=== PATIENT | female | born 1960 | race American Indian/Alaskan Native ===

== ENCOUNTER 2017-10-11 11:35 | Observation (INO) | payer OTHER ==
[2017-10-11 11:53] VITALS: BMI 30.2
--- NOTE | 2017-10-11 12:35 | ED PDOC ---
Arrival/HPI - General Chief Complaint: Chest Pain Time Seen by Provider: 10/11/17 12:32 Historian: Patient - History of Present Illness Narrative History of Present Illness (Text): 10/11/17 1245 pt p/w + 3 days onset of persistent left arm/shoulder region pain, severe at 8/ 10, following shoveling snow 3 days ago; pt states + left chest pain started today, at most pain is also 8/10; pt states chest pain is intermittent, lasting few seconds; pt states the chest pain prompted her to come to ED for check up; pt denied fever/chills/sweats, no sob/palpitations, no abd pain, no n/v, intermittent left arm/hand numbness/tingling, no urinary/bowel changes; pt denied Fall/trauma/sick contact, no travel; pt is here for further eval; pt's without other complaints. Time/Duration: < week (1 day of chest pain, 3 days of left arm pain) Symptom Onset: Sudden Symptom Course: Intermittent Quality: Tightness, Cramping Severity Level: 6, Moderate Activities at Onset: Rest Context: Home Past Medical History - Provider Review Nursing Documentation Reviewed: Yes - Travel History Have you recently traveled outside [place] w/in the past 3 mons?: No - Past History Past History: No Previous - Infectious Disease Hx of Infectious Diseases: None - Cardiac Hx Hypertension: Yes - Psychiatric Hx Substance Use: No - Surgical History Hx Appendectomy: Yes Hx Tonsillectomy: Yes - Anesthesia Hx Anesthesia: Yes Hx Anesthesia Reactions: No Hx Malignant Hyperthermia: No Family/Social History - Physician Review Nursing Documentation Reviewed: Yes Family/Social History: No Known Family HX Smoking Status: Light Smoker < 10 Cigarettes Daily Hx Alcohol Use: Yes Frequency of alcohol use: Socially Hx Substance Use: No Hx Substance Use Treatment: No Allergies/Home Meds Allergies/Adverse Reactions: Allergies No Known Allergies Allergy (Verified 10/11/17 11:55) Home Medications: Home Meds Medication Instructions Recorded Confirmed Lisinopril [Prinivil] 1 tab PO DAILY 10/11/17 10/11/17 Multivitamin [Daily Prince] 1 tab PO DAILY 10/11/17 10/11/17 Review of Systems - Review of Systems Constitutional: Normal Eyes: Normal ENT: Normal Respiratory: Normal Cardiovascular: Chest Pain Gastrointestinal: Normal Genitourinary Female: Normal Musculoskeletal: Other (left arm/shoulder pain) Skin: Normal Neurological: Normal. absent: Headache, Dizziness Endocrine: Normal Hemo/Lymphatic: Normal Psychiatric: Normal Physical Exam Vital Signs Reviewed: Yes Vital Signs Temp Pulse Resp BP Pulse Ox 10/11/17 11:35 97.6 F 65 19 135/82 98 Temperature: Afebrile Blood Pressure: Normal Pulse: Regular Respiratory Rate: Normal Appearance: Positive for: Well-Appearing, Non-Toxic, Uncomfortable, Other ( resting in bed, alert/awake, cooperative, GCS = 15, oriented x 3) Pain Distress: Mild Mental Status: Positive for: Alert and Oriented X 3 - Systems Exam Head: Present: Atraumatic, Normocephalic Pupils: Present: PERRL, Other (visual field intact b/l; no nystagmus, no photophobia; sclera anicteric) Extroacular Muscles: Present: EOMI Conjunctiva: Present: Normal Ears: Present: Normal Mouth: Present: Moist Mucous Membranes, Normal Teeth, Other (uvula/tongue are midline, no exudate/lesions, no drooling/stridor) Pharnyx: Present: Normal Nose (External): Present: Atraumatic Nose (Internal): Present: Normal Inspection Neck: Present: Normal Range of Motion, Trachea Midline, Other (no midline tenderness, no nuchal rigidity, no meningeal signs). No: MIDLINE TENDERNESS Respiratory/Chest: Present: Clear to Auscultation, Good Air Exchange, Other ( CTA b/l, no w/r/r, no accessory muscle use noted, no tachypenia) Cardiovascular: Present: Regular Rate and Rhythm, Normal S1, S2. No: Murmurs Abdomen: Present: Normal Bowel Sounds, Other (well nourished female, no focal tenderness, no barnes's sign, no mcburney's point tenderness, no masses/rebound/ guarding/rigidity) Back: Present: Normal Inspection. No: Midline Tenderness Upper Extremity: Present: Normal Inspection, Normal ROM, NORMAL PULSES, Neurovascularly Intact, Capillary Refill < 2s. No: Edema Lower Extremity: Present: Normal Inspection, NORMAL PULSES, Normal ROM, Neurovascularly Intact, Capillary Refill < 2 s. No: CALF TENDERNESS, Corbin's Sign Neurological: Present: GCS=15, CN II-XII Intact, Speech Normal Skin: Present: Warm, Normal Color, Other (cap refill < 1sec, no ulcerations, no petechiae) Psychiatric: Present: Alert, Oriented x 3 Medical Decision Making ED Course and Treatment: 10/11/17 12:45 Impression: chest pain, left arm pain i have consider all the differential diagnosis regarding pt's chief medical complaints/clinical findings, including but are not limited to: chest pain, r/o acs A/P: chest pain - labs - iv - xray - r/o acs 10/11/2017 13:23 Chest X-ray IMPRESSION: No active disease. Dictator: Romain Acevedo MD 10/11/17 14:54 pt states currently chest pain free, but left shoulder/arm pain continues pt is not sob pt is made aware of her medical results agrees with admission/observation I spoke to Dr Sam (financial sales professional PCP) at 1330, made aware, agrees with ED mgt/txt, agrees with admission/obs placement Re-evaluation Time: 13:26 Reassessment Condition: Improved - Lab Interpretations Lab Results: 10/11/17 12:22 10/11/17 12:22 Lab Results 10/11/17 13:15: Urine Color Yellow, Urine Appearance Clear, Urine pH 6.0, Ur Specific [place] 1.020, Urine Protein Negative, Urine Glucose (UA) Negative, Urine Ketones Negative, Urine Blood Negative, Urine Nitrate Negative, Urine Bilirubin Negative, Urine Urobilinogen 0.2, Ur Leukocyte Esterase Negative 10/11/17 12:22: Sodium 139, Potassium 4.4, Chloride 107, Carbon Dioxide 27, Anion Gap 10, BUN 18, Creatinine 0.9, Est GFR ( Amer) > 60, Est GFR (Non- Af Amer) > 60, Random Glucose 102, Calcium 9.8, Magnesium 2.1, Total Bilirubin 1.2, AST 27, ALT 20, Alkaline Phosphatase 82, Lactate Dehydrogenase 400, Total Creatine Kinase 51, Troponin I < 0.01, NT-Pro-B Natriuret Pep 31.9, Total Protein 7.2, Albumin 4.2, Globulin 3.0, Albumin/Globulin Ratio 1.4 10/11/17 12:22: WBC 5.7, RBC 4.03, Hgb 12.9, Hct 38.2, MCV 94.8, MCH 32.0, MCHC 33.8, RDW 12.5, Plt Count 204, MPV 10.3, Gran % 45.3 L, Lymph % (Auto) 45.5 H, [place] % (Auto) 6.0, Eos % (Auto) 2.5, Baso % (Auto) 0.7, Gran # 2.58, Lymph # ( Auto) 2.6, [place] # (Auto) 0.3, Eos # (Auto) 0.1, Baso # (Auto) 0.04 I have reviewed the lab results: Yes Interpretation: All labs normal - RAD Interpretation Narrative RAD Interpretations (Text): 10/11/17 14:55 HISTORY: chest pain COMPARISON: No prior. TECHNIQUE: Chest PA and lateral FINDINGS: LUNGS: No active pulmonary disease. PLEURA: No significant pleural effusion identified. No pneumothorax apparent. CARDIOVASCULAR: Normal. OSSEOUS STRUCTURES: No significant abnormalities. VISUALIZED UPPER ABDOMEN: Normal. OTHER FINDINGS: None. IMPRESSION: No active disease. Radiology Orders: 10/11/17 12:32 CHEST TWO VIEWS (PA/LAT) [RAD] Stat Material Handler 1St Shift: Radiologist - EKG Interpretation EKG Interpretation (Text): 10/11/17 14:56 NSR at 65 bpm, normal axis, no ectopy, qs in leads III, F, non-specific st-t changes to leads V4-5, ABNL EKG; no old ekg to compare with Interpreted by ED Physician: Yes Type: 12 lead EKG Comparison: No previous EKG avail. - Medication Orders Current Medication Orders: Discontinued Medications Aspirin (Aspirin) 325 mg PO STAT STA Stop: 10/11/17 12:33 Last Admin: 10/11/17 12:49 Dose: 325 mg Nitroglycerin (Nitrostat Sl Tab) 0.4 mg SL STAT STA Stop: 10/11/17 12:33 Last Admin: 10/11/17 12:48 Dose: 0.4 mg Disposition/Present on Arrival - Present on Arrival Any Indicators Present on Arrival: No History of DVT/PE: No History of Uncontrolled Diabetes: No Urinary Catheter: No History of Decub. Ulcer: No History Surgical Site Infection Following: None - Disposition Have Diagnosis and Disposition been Completed?: Yes Diagnosis: Chest pain with minimal risk of acute coronary syndrome Disposition: HOSPITALIZED Disposition Time: 13:30 Patient Plan: Admission, Observation Patient Problems: Current Active Problems Problem Status Onset Chest pain with minimal risk of acute coronary syndrome Acute Condition: STABLE
[2017-10-11 12:48] LABS: BASO # 0.04 K/mm3 (0.0-2.0); BASO % 0.7 % (0.0-3.0); EOS # 0.1 (0.0-0.7); EOS % 2.5 % (1.5-5.0); GRAN # 2.58 (1.4-6.5); GRAN % 45.3 % (50.0-68.0); HEMOGLOBIN 12.9 g/dL (12.0-16.0); LYMPH # 2.6 (1.2-3.4); LYMPH % 45.5 % (22.0-35.0); MEAN CELL VOLUME 94.8 fl (80.0-105.0); MEAN CORPUSCULAR HGB CONC 33.8 g/dl (31.0-37.0); MEAN PLATELET VOLUME 10.3 fl (7.0-11.0); MONO # 0.3 (0.1-0.6); RBC 4.03 10^6/uL (3.5-6.1); RED CELL DISTRIBUTION WIDTH 12.5 % (11.5-14.5); WHITE BLOOD COUNT 5.7 10^3/ul (4.5-11.0)
[2017-10-11 13:00] LABS: ALB/GLOB RATIO 1.4 (1.1-1.8); ALBUMIN 4.2 g/dL (3.0-4.8); ALT/SGPT 20 U/L (7-56); AST/SGOT 27 U/L (14-36); BLOOD UREA NITROGEN 18 mg/dL (7-21); CALCIUM 9.8 mg/dL (8.4-10.5); GFR AFRICAN-AMERICAN > 60; GFR NON-AFRICAN AMERICAN > 60
[2017-10-11 13:11] LABS: B-TYPE NATRIURETIC PEPTIDE 31.9 pg/mL (0-450); TROPONIN I < 0.01 ng/mL
--- NOTE | 2017-10-11 13:24 | RAD ---
HISTORY: chest pain COMPARISON: No prior. TECHNIQUE: Chest PA and lateral FINDINGS: LUNGS: No active pulmonary disease. PLEURA: No significant pleural effusion identified. No pneumothorax apparent. CARDIOVASCULAR: Normal. OSSEOUS STRUCTURES: No significant abnormalities. VISUALIZED UPPER ABDOMEN: Normal. OTHER FINDINGS: None. IMPRESSION: No active disease.
[2017-10-11 13:31] LABS: URINE BILIRUBIN NEGATIVE (NEGATIVE); URINE BLOOD NEGATIVE (NEGATIVE); URINE GLUCOSE (UA) NEGATIVE (NEGATIVE); URINE LEUKOCYTE ESTERASE NEGATIVE Leu/uL (NEGATIVE); URINE PROTEIN NEGATIVE mg/dL (<30 mg/dL); URINE UROBILINOGEN 0.2 E.U./dL (<1 E.U./dL)
[2017-10-11 13:32] LABS: URINE APPEARANCE CLEAR (CLEAR); URINE COLOR YELLOW (YELLOW)
[2017-10-11 15:43] VITALS: RESP 18
[2017-10-11] MEDS ORDERED: Non Formulary Medication (Multivitamin [Daily Vite] 1 TAB) PO SCH (17:00)
[2017-10-11 20:27] LABS: HDL CHOLESTEROL 72 mg/dL (29-60)
[2017-10-11 20:38] LABS: LDL CHOLESTEROL 70 mg/dL (0-129)
[2017-10-11] MEDS: Naproxen 550 mg Tab PO SCH (22:44)
--- NOTE | 2017-10-12 05:12 | HP ---
CHIEF COMPLAINT: Chest pain, left shoulder pain. HISTORY OF PRESENT ILLNESS: Ms. Linda Lino, 57-year-old lady, came in to [facility] Emergency Room with left chest pain. Actually three days ago, she was shoveling snow and she started to have pain in her neck, left shoulder, and going to left upper extremity, and today she started chest pain that was intermittent, lasting few seconds. The patient states that chest pain prompted her to come in the Emergency Room Department for checkup. Denies fevers, chills. No nausea, vomiting, or diarrhea. No fever, no headache. No history of fall or sick contact. No travel. The patient was seen with the family sitting on the bedside in her room. PAST MEDICAL HISTORY: Hypertension, appendectomy, tonsillectomy. FAMILY HISTORY: Father and mother noncontributory. HABITS: Light smoker, less than 10. Alcohol, yes. Substance abuse, no. ALLERGIES: THE PATIENT IS NOT ALLERGIC WITH ANY MEDICATION. HOME MEDICATIONS: Lisinopril, multivitamins. REVIEW OF SYSTEMS: Patient was seen and examined on the bedside in her room. Family was sitting around bedside, still having pain in the neck, left upper extremity, shoulder and left side of the chest below the breast. No headache, no dizziness, no fever, no chills, no nausea or vomiting, no dysuria, no hematuria. PHYSICAL EXAMINATION: VITAL SIGNS: Temperature 97.6, pulse 55, respiratory rate 19, blood pressure 135/82, pulse oximetry is 98. HEENT: Head: Normocephalic, atraumatic. Eyes: PERRLA. Extraocular muscles intact. Conjunctivae clear. Nose patent. NECK: Supple. No carotid bruit. No JVD or thyromegaly. CHEST: Bilaterally symmetrical. HEART: S1 and S2 positive. LUNGS: Clear to auscultation. ABDOMEN: Soft. Bowel sounds present. No organomegaly. EXTREMITIES: No edema. No cyanosis. NEUROLOGICAL: The patient is awake and alert. Moving all four extremities. No focal deficits. LABORATORY DATA: White blood cells 5.7, hemoglobin 12.9, hematocrit 38.2, platelets 204. Sodium 139, potassium 4.4, BUN 18, creatinine 0.9, glucose 102. ASSESSMENT AND PLAN: Ms. Linda Lino is 57-year-old lady with history of hypertension, came in [facility] with chest pain, rule out cardiac reason with minimum risk of acute coronary syndrome, neck pain, left shoulder pain, rule out bursitis and tendinitis of the left shoulder, did x-ray of the shoulder, results pending. MRA of the neck ordered. Cardiology consult called with Dr. Almanzar. Cardiac enzymes x3 ordered. Started the patient on aspirin, nitroglycerin given, lisinopril given. We will give gastrointestinal and deep venous thrombosis prophylaxis, repeat labs. We will follow up. Lashanda Sam MD
[2017-10-12 06:27] LABS: BASO # 0.04 K/mm3 (0.0-2.0); BASO % 0.6 % (0.0-3.0); EOS # 0.2 (0.0-0.7); EOS % 3.5 % (1.5-5.0); GRAN # 2.73 (1.4-6.5); GRAN % 41.5 % (50.0-68.0); HEMOGLOBIN 12.5 g/dL (12.0-16.0); LYMPH # 3.2 (1.2-3.4); LYMPH % 48.9 % (22.0-35.0); MEAN CELL VOLUME 93.2 fl (80.0-105.0); MEAN CORPUSCULAR HEMOGLOBIN 31.6 pg (25.0-35.0); MEAN PLATELET VOLUME 10.3 fl (7.0-11.0); MONO # 0.4 (0.1-0.6); MONO % 5.5 % (1.0-6.0); RBC 3.95 10^6/uL (3.5-6.1); RED CELL DISTRIBUTION WIDTH 12.5 % (11.5-14.5); WHITE BLOOD COUNT 6.6 10^3/ul (4.5-11.0)
--- NOTE | 2017-10-12 06:31 | CON ---
DATE: CARDIOLOGY CONSULTATION REASON FOR CONSULTATION: Chest pain, rule out underlying coronary artery disease. BRIEF CLINICAL HISTORY: This is a 57-year-old female with a past medical history significant for hypertension and history of CVA one year ago, who was shoveling snow, then developed numbness in the left arm, samuel, and then it progressed from the forearm to the arm and then the shoulder pain. This morning, the patient had four episodes of chest pain, so came to the emergency room. Denies any prior episode of chest pain or dyspnea on exertion. PAST MEDICAL HISTORY: Significant for hypertension. FAMILY HISTORY: Noncontributory. No history of significant coronary artery disease. SOCIAL HISTORY: Active smoking, started at the age of 15, used to smoke a pack, but now cut down to 3-4 cigarettes. Denies any history of alcohol abuse. Denies any history of substance abuse. CURRENT MEDICATIONS: The patient is taking multivitamin one tablet daily and lisinopril 10 mg daily. REVIEW OF SYSTEMS: As per HPI. PHYSICAL EXAMINATION VITAL SIGNS: Height of the patient 5 feet 1 inch, weight of the patient is 150 pounds, body mass index 30.2 kg/m2, temperature afebrile, heart rate 60, blood pressure 123/71. HEENT: PERRLA. Extraocular muscles are intact. NECK: Supple. No carotid bruits or thyromegaly. CHEST: Clear to auscultation. HEART: S1 and S2 regular. ABDOMEN: Soft. EXTREMITIES: Clubbing and cyanosis negative. LABORATORY DATA: EKG showed normal sinus, Q-wave in III and aVF. Blood workup as follows: WBC 5.7, hemoglobin 12.9, hematocrit 38.2, and platelet count 204. Chemistries showed sodium 130, potassium 4.4, chloride 107, carbon dioxide , anion gap of 10, BUN 18, and creatinine 0.9. Troponin is 0.01. IMPRESSION: Atypical chest pain and hypertension. Given the multiple history of coronary artery disease, suggest echocardiogram and stress test. Further recommendations after the stress test and we will follow with you. We will do one more repeat of troponin and if the troponin remains negative, we will schedule her for a stress test. Discuss with the patient, will proceed for getting a stress test. Further recommendations will depend upon the hospital course. We will follow with you. We will keep n.p.o. after 12 midnight , lipid profile, TSH, and hemoglobin A1c. Thank you, Dr. Sam for providing us the opportunity in taking care of the patient, Ms. iLno. Saroj Rowe MD
[2017-10-12 06:55] LABS: TROPONIN I < 0.01 ng/mL
[2017-10-12 07:21] LABS: ALB/GLOB RATIO 1.3 (1.1-1.8); ALBUMIN 3.6 g/dL (3.0-4.8); ALT/SGPT 18 U/L (7-56); AST/SGOT 21 U/L (14-36); BLOOD UREA NITROGEN 23 mg/dL (7-21); CALCIUM 9.6 mg/dL (8.4-10.5); GFR AFRICAN-AMERICAN > 60; GFR NON-AFRICAN AMERICAN 57; HDL CHOLESTEROL 62 mg/dL (29-60)
[2017-10-12 07:29] LABS: LDL CHOLESTEROL 60 mg/dL (0-129)
--- NOTE | 2017-10-12 07:54 | CP.PCM.PN ---
Subjective - Date & Time of Evaluation Date of Evaluation: 10/12/17 Time of Evaluation: 06:55 - Subjective Subjective: Seen and examined by me and Dr. Rowe Reason for consult and follow up: developed chest pain and numbness of left arm and shoulder pain after shovelling snow. She had four episodes of chest pain thus came to the ER. Significant history for hypertension, history of CVA a year ago, current smoker Subjective: denies chest pain now, denies shortness of breath, verbalized going for stress test today Objective - Vital Signs/Intake and Output Vital Signs (last 24 hours): Temp Pulse Resp BP Pulse Ox 97.9 F 53 L 18 123/71 98 10/11/17 18:44 10/12/17 05:14 10/11/17 18:44 10/11/17 18:44 10/11/17 18:44 Intake and Output: 10/12/17 10/12/17 06:59 18:59 Intake Total 300 Balance 300 - Medications Medications: Current Medications Acetaminophen (Tylenol 325mg Tab) 650 mg PO Q6H PRN PRN Reason: Pain, Mild (1-3) Last Admin: 10/11/17 20:34 Dose: 650 mg Aspirin (Aspirin) 325 mg PO DAILY [facility] Famotidine (Pepcid) 40 mg PO HS [facility] Last Admin: 10/11/17 22:44 Dose: 40 mg Lisinopril (Zestril) 10 mg PO DAILY [facility] Last Admin: 10/11/17 18:12 Dose: 10 mg Multivitamins (Thera Tab) 1 tab PO DAILY [facility] Naproxen (Anaprox Ds) 550 mg PO BID [facility] Last Admin: 10/11/17 22:44 Dose: 550 mg - Labs Labs: 10/12/17 05:30 10/12/17 05:30 - Constitutional Appears: Well, No Acute Distress - Head Exam Head Exam: NORMAL INSPECTION - Eye Exam Eye Exam: Normal appearance Pupil Exam: NORMAL ACCOMODATION - ENT Exam ENT Exam: Mucous Membranes Moist - Neck Exam Neck Exam: Full ROM - Respiratory Exam Respiratory Exam: Clear to Ausculation Bilateral, NORMAL BREATHING PATTERN - Cardiovascular Exam Cardiovascular Exam: REGULAR RHYTHM, +S1, +S2 - GI/Abdominal Exam GI & Abdominal Exam: Soft, Normal Bowel Sounds - Extremities Exam Extremities Exam: Full ROM, Normal Capillary Refill, Normal Inspection - Neurological Exam Neurological Exam: Alert, Awake, Oriented x3 - Psychiatric Exam Psychiatric exam: Normal Affect, Normal Mood - Skin Skin Exam: Dry, Intact, Normal Color, Warm Assessment and Plan - Assessment and Plan (Free Text) Assessment: Impression: developed chest pain and numbness of left arm and shoulder pain after shovelling snow. She had four episodes of chest pain thus came to the ER. Significant history for hypertension, history of CVA a year ago, current smoker, Plan: Kept NPO For Stress test today, will follow up results Blood pressure and heart rate stable Continue ASA 325 mg daily and Lisinopril 10 mg daily. Naproxen 550 mg for shoulder pain. Will follow Plan and treatment discussed with Dr. Rowe
[2017-10-12 08:27] VITALS: BP 123/83; TEMP 97.6; O2SAT 100
--- NOTE | 2017-10-12 08:31 | RAD ---
PROCEDURE: Radiographs of the Left Shoulder HISTORY: pain COMPARISON: No prior. FINDINGS: BONES: Normal. No fracture. JOINTS: Normal. Glenohumeral and acromioclavicular joints preserved. No osteoarthritis. SOFT TISSUES: Normal. OTHER FINDINGS: None. IMPRESSION: Normal radiographs of the left shoulder.
[2017-10-12] MEDS ORDERED: Multivitamin Therapeutic Tab PO SCH (10:00)
--- NOTE | 2017-10-12 11:01 | CARD ---
APPROVED REPORT EKG Measurement Heart [id number] CO 126P54 [id number] <Conclusion> Sinus rhythm NSSTW changes Small q wave in 3
[2017-10-12] MEDS ORDERED: Aminophylline 25 mg/ml Inj ONE (11:17)
[2017-10-12] MEDS: Naproxen 550 mg Tab PO SCH (12:55)
[2017-10-12 15:42] VITALS: PULSE 55
--- NOTE | 2017-10-12 16:47 | MRI ---
PROCEDURE: MR CERVICAL SPINE WITHOUT CONTRAST HISTORY: LEFT SHOULDER PAIN COMPARISON: None available. TECHNIQUE: Multiecho multiplanar sequences were performed through the cervical spine without the use of intravenous contrast. FINDINGS: Normal lordotic curvature. Craniocervical junction unremarkable. Vertebral body heights preserved. No marrow signal abnormality. Normal cervical cord. No paraspinal abnormality. C2-C3: No disc herniation, spinal canal stenosis or neural foraminal narrowing. C3-C4: No disc herniation, spinal canal stenosis or neural foraminal narrowing. C4-C5: No disc herniation, spinal canal stenosis or neural foraminal narrowing. C5-C6: No disc herniation, spinal canal stenosis or neural foraminal narrowing. C6-C7: No disc herniation, spinal canal stenosis or neural foraminal narrowing. C7-T1: No disc herniation, spinal canal stenosis or neural foraminal narrowing. OTHER FINDINGS: There is mild disc degeneration with desiccation of the disc material throughout the spine IMPRESSION: No evidence of disc herniation or spinal stenosis.
--- NOTE | 2017-10-12 18:32 | CARD ---
APPROVED REPORT EXAM: Two-dimensional and M-mode echocardiogram with Doppler and color Doppler. INDICATION Chest Pain 2D DIMENSIONS Left Atrium (2D)3.7 (1.6-4.0cm)IVSd1.0 (0.7-1.1cm) LVDd4.0 (3.9-5.9cm)PWd0.9 (0.7-1.1cm) LVDs2.8 (2.5-4.0cm)FS (%) 31.4 % LVEF (%)59.8 (>50%) M-Mode DIMENSIONS Aortic Root2.80 (2.2-3.7cm)Aortic Cusp Exc.1.70 (1.5-2.0cm) Aortic Valve AoV Peak Dqpnwzqi658.0cm/Dorian Peak GR.8mmHg Mitral Valve MV E Vlsvhevc624.0cm/sMV A Ftdklefb193.0cm/sE/A ratio0.9 TDI Lateral E' Peak V8.09cm/sMedial E' Peak V5.95cm/sE/Lateral E'12.9 E/Medial E'17.5 Pulmonary Valve PV Peak Hzycbdvr16.9cm/sPV Peak Grad.1mmHg Tricuspid Valve TR Peak Pgjntaql728zh/sRAP YIUQTRXQ31zwHpLY Peak Gr.26mmHg VNOJ71zvPb LEFT VENTRICLE The left ventricle is normal size. There is normal left ventricular wall thickness. The left ventricular function is normal.EF-60% There is normal LV segmental wall motion. Transmitral Doppler flow pattern is Grade III-reversible restrictive diastolic dysfunction. No left ventricle thrombus noted on this study. There is no ventricular septal defect visualized. There is no left ventricular aneurysm. There is no mass noted in the left ventricle. RIGHT VENTRICLE The right ventricle is normal size. There is normal right ventricular wall thickness. The right ventricular systolic function is normal. ATRIA The left atrium size is normal. The right atrium size is normal. The interatrial septum is intact with no evidence for an atrial septal defect. AORTIC VALVE The aortic valve is normal in structure. There is trace aortic regurgitation. There is no aortic valvular stenosis. There is no aortic valvular vegetation. MITRAL VALVE The mitral valve is thickened but opens well. Mitral regurgitation is trace. There is no mitral valve stenosis. There is no evidence of mitral valve prolapse. TRICUSPID VALVE The tricuspid valve leaflets are thickened , but open well. There is trace to mild tricuspid regurgitation.RVSP-36 mmof hg. There is no tricuspid valve stenosis. There is no tricuspid valve prolapse or vegetation. PULMONIC VALVE The pulmonary valve is normal in structure. There is trace pulmonic valvular regurgitation. There is no pulmonic valvular stenosis. GREAT VESSELS The aortic root is normal in size. The ascending aorta is normal in size. The pulmonary artery is normal. The IVC is normal in size and collapses >50% with inspiration. PERICARDIAL EFFUSION There is no pleural effusion. There is no pericardial effusion. <Conclusion> There is normal left ventricular wall thickness. The left ventricular function is normal.EF-60% There is trace aortic regurgitation. Mitral regurgitation is trace. There is trace to mild tricuspid regurgitation.RVSP-36 mmof hg. The IVC is normal in size and collapses >50% with inspiration. There is no pericardial effusion.
--- NOTE | 2017-10-12 23:02 | CARD ---
APPROVED REPORT Protocol: LEXISCAN Test Type: Lexiscan Sestamibi Stress Test Attending Physician: Dr. Saroj Almanzar Referring Physician: Dr. Lashanda Sam Test Indications: Chest Pain Height:5 ft 1 in Weight:160lbs Medications: tylenol, aspirin, pepcid, zestril, MVI, naproxen Medical History: 57 year old male with a h/o htn, appendectomy and tonsilectomy Target HR: 163 bpm Resting ECG: RSR. Non Specific ST_T Changes. Resting Heart Rate: 61 bpm Resting Blood Pressure: 132/78mmHg Submaximum (85%): 139 bpm PROCEDURE Pharmacologic stress testing was performed using 0.4mg per 5ml of regadenoson given intravenously over 7-10 seconds. Reversal agent aminophyline 100 mg, given intravenously for Other. POST EXERCISE Reason for Termination: Protocol completed Target HR: No Max HR: 60 bpm 57% of Maximum Predicted HR: 163 bpm Exercise duration: 00:31 min:sec, 0 Stage Exercise capacity: 1.0METs Max Blood Pressure: 132/78mmHg Blood Pressure response to exercise: normal resting BP - appropriate response Heart Rate response to exercise: appropriate Chest Pain: No, none Angina index: 0 Arrhythmia: No, none ST Change: No, none Deviation: 0 mm TEST SUMMARY [id number]. INFUSIONDOSE [id number]. [id number]. INTERPRETATION Stress EKG Conclusion: IV LEXISCAN NUCLEAR STRESS TEST NEGATIVE FOR CHEST PAIN AND NEGATIVE FOR ST-T CHANGES. NUCLEAR SCAN REPORT PENDING. Signed by Saroj Almanzar Electronically Approved: 10/12/2017 13:30:35 EXAM: Myocardial Perfusion REST/STRESS Stress Test Type: Pharmacologic Imaging Protocol Rest Spect myocardial perfusion imaging was performed in supine position 45 minutes following the injection of 10.3 mCi of Tc-99 Myoview. At peak stress, the patient was injected intravenously with 30.2mCi of Tc-99 tetrofosmin after an infusion time of 0 minutes and 10 seconds. Gated Stress Spect was performed 65 minutes after intravenous Tc-99 Myoview injection. The images were gated to evaluate regional wall motion and calculate ventricular ejection fraction.Images were reconstructed using backfilter projection method in short horizontal and verticle long axis. Spect slices were generated. LV Perfusion The quality of the study is good. The left ventricle is normal in size. The right ventricle is unremarkable. The lung uptake is within normal limits. The distribution of tracer reveals normal uptake pattern throughout the LV myocardium on the stress study. The rest myocardial perfusion study shows no significant change. Wall Motion Wall motion study shows good contractility of the left ventricle. LVEF = 69%. Conclusion 1. Normal SPECT myocardial perfusion study. 2. Normal gated wall motion of the left ventricle.
--- NOTE | 2017-10-13 01:39 | DS ---
CHIEF COMPLAINT: Chest pain and left shoulder pain. HISTORY OF PRESENT ILLNESS: Ms. Linda Lino, a 57-year-old female, came to the [facility] emergency room with a left-sided chest pain. Actually 3-days ago, she was shoveling snow and she started having pain in her neck, left shoulder and is going to the left upper extremity and today, day of admission, the patient started chest pain, was intermittent, lasting a few seconds. The patient states that the chest pain prompted her to come to the emergency room. The patient came to the emergency room. We did shoulder x-rays. Seen by Dr. Rowe. Echocardiography done. Stress test done. Cervical spine MRI done. The patient improved. 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 Cost Coordinator cleared the patient. We discharged the patient home with followup with primary care physician and Cardiology. We will follow up MRI and stress test as outpatient. PAST MEDICAL HISTORY: Hypertension, appendectomy, tonsillectomy. FAMILY HISTORY: Father and mother noncontributory. HABITS: Light smoker, less than 10 cigarettes. Alcohol, yes. Substance abuse, no. ALLERGIES: THE PATIENT IS NOT ALLERGIC WITH ANY MEDICATIONS. HOME MEDICATIONS: Lisinopril, multivitamins. REVIEW OF SYSTEMS: The patient is seen and examined at the bedside, looking comfortable. No nausea, vomiting, diarrhea. No hematuria or hematochezia. No headache. No dizziness. Just came back from stress test. Having lunch. Went for MRI also. No fever. No chills. PHYSICAL EXAMINATION: VITAL SIGNS: Temperature 97.6, pulse 55, blood pressure 123/83, respiratory rate 18. HEENT: Head normocephalic, atraumatic. Eyes PERRLA. Extraocular muscles intact. Conjunctivae clear. Nose patent. Mucous membranes moist. NECK: Supple. No carotid bruit. No JVD or thyromegaly. CHEST: Bilaterally symmetrical. HEART: S1 and S2 positive. LUNGS: Clear to auscultation. ABDOMEN: Soft. Bowel sounds positive. No organomegaly. EXTREMITIES: No edema. No cyanosis. NEUROLOGICAL: The patient is awake and alert. Moving all 4 extremities. No focal deficits. LABORATORY DATA: White blood cells 6.6, hemoglobin 12.5, hematocrit 36.8, platelets 200. Sodium 140, potassium 4.0, BUN 23, creatinine 1.0, glucose 88, phosphorus 4.7, HDL 62. ASSESSMENT AND PLAN: Ms. Linda Lino, 57-year-old lady with increased BUN, hyperphosphatemia, high HDL, history of hypertension, came with chest pain, neck pain, left upper extremity pain. Cervical spine MRI was done showed there is mild disk degeneration with desiccation of the disk material throughout the spine. No evidence of herniated disk or spinal stenosis. X-ray of the left shoulder done. Normal radiographs of the left shoulder. Stress test done. According to Dr. Shayne Méndez, normal SPECT myocardial perfusion study. Normal gated wall motion of the left ventricle. Seen by Dr. Rowe. The patient has history of cerebrovascular accident a year ago, is currently smoker. The patient came with chest pain and numbness of the left arm and shoulder pain after shoveling snow. She has 4 episodes of chest pain and thus came to the emergency room. Significant for history of hypertension. The patient was given aspirin. Blood pressure, heart rate controlled, lisinopril. Naproxen was started by me. The patient improved. Discharged home. I will follow up as outpatient. Prescription of the medications given on the bedside. Lashanda Sam MD
== END 2017-10-12 17:27 | disposition home or self-care (01) ==
LOC: ED 11:35 → ERH 13:26 → 3RNO 17:45
PROVIDERS: ADMIT Internal Medicine; ATTEND Internal Medicine
DX: R07.89 Other chest pain (principal); M25.512 Pain in left shoulder; E83.39 Other disorders of phosphorus metabolism; F17.210 Nicotine dependence, cigarettes, uncomplicated; I10 Essential (primary) hypertension; I25.10 Atherosclerotic heart disease of native coronary artery without angina pectoris; Y93.H1 Activity, digging, shoveling and raking; Z86.73 Personal history of transient ischemic attack (TIA), and cerebral infarction without residual deficits; Z90.49 Acquired absence of other specified parts of digestive tract
CPT/HCPCS: 36415; 71046; 72141; 73030; 78452; 80053; 80061; 81003; 82550; 83036; 83615; 83735; 83880; 84100; 84443; 84484; 85025; 93005; 93017; 93306; 99285; A9502; G0378; J0280; J2785